=== PATIENT | male | born 1980 | race Caucasian/White ===

== ENCOUNTER 2020-05-09 11:07 | Inpatient (IN) | payer OTHER ==
[2020-05-09] MEDS ORDERED: LORazepam 1 MG Tab PO ONE ×2 (11:26→13:24)
[2020-05-09] MEDS ORDERED: Albuterol/Ipratropium 4 GM Inhalation Spray INH STA (11:26)
--- NOTE | 2020-05-09 11:29 | EDM.PDOC ---
ED HPI GENERAL MEDICAL PROBLEM - General Chief Complaint: Respiratory Problem Stated Complaint: SHORTNESS OF BREATH Time Seen by Provider: 05/09/20 11:18 Source of Information: Reports: Patient, RN Notes Reviewed History Limitations: Reports: No Limitations - History of Present Illness INITIAL COMMENTS - FREE TEXT/NARRATIVE: 40-year-old gentleman presents emergency department a complaint of shortness of breath, he is currently working on the [email or web address] he has a negative Covid test 1 week ago however this morning last night started feeling more short of breath extremely short of breath this morning called EMS services for further evaluation. Denies any fever has no history of asthma is quite anxious Hand Pain Score (Numeric/FACES): 10 - Related Data Allergies Allergy/AdvReac Type Severity Reaction Status Date / Time No Known Allergies Allergy Verified 05/09/20 11:16 Home Meds: Home Meds Mirtazapine 30 mg PO DAILY 05/09/20 [History] lisinopriL [Lisinopril] 10 mg PO DAILY 05/09/20 [History] traZODone 100 mg PO BEDTIME 05/09/20 [History] Past Medical History Cardiovascular History: Reports: High Cholesterol, Hypertension Musculoskeletal History: Reports: Fracture Psychiatric History: Reports: Anxiety, Depression - Infectious Disease History Infectious Disease History: Reports: Chicken Pox - Past Surgical History HEENT Surgical History: Reports: Oral Surgery Musculoskeletal Surgical History: Reports: Other (See Below) Other Musculoskeletal Surgeries/Procedures:: right hand surgery Social & Family History - Tobacco Use Tobacco Use Status *Q: Never Tobacco User ED ROS GENERAL - Review of Systems Review Of Systems: See Below Constitutional: Reports: No Symptoms HEENT: Reports: No Symptoms Respiratory: Reports: Shortness of Breath, Wheezing Cardiovascular: Reports: Dyspnea on Exertion. Denies: Chest Pain GI/Abdominal: Reports: No Symptoms ED EXAM, GENERAL - Physical Exam Exam: See Below Exam Limited By: No Limitations General Appearance: Alert, Mild Distress Respiratory/Chest: Chest Non-Tender, Decreased Breath Sounds, Other (Tachypneic) Cardiovascular: Tachycardia GI/Abdominal: Soft, Non-Tender Course - Vital Signs Last Recorded V/S: Last Vital Signs Temp 98.4 F 05/09/20 14:39 Pulse 98 05/09/20 14:39 Resp 18 05/09/20 14:39 BP 140/85 05/09/20 14:39 Pulse Ox 98 05/09/20 14:39 - Orders/Labs/Meds Orders: Active Orders 24 hr Category Date Time Status EKG Documentation Completion [RC] ASDIRECTED Care 05/09/20 14:56 Active Peripheral IV Care [RC] . DIRECTED Care 05/09/20 14:54 Active RT Post Treatment Assessment [RC] Click to Edit Care 05/09/20 11:26 Active Iopamidol [Isovue-370 (76%)] Med 05/09/20 15:15 Active 100 ml IV . DIRECTED Sodium Chloride 0.9% [Normal Saline] 1,000 ml Med 05/09/20 15:00 Active IV ASDIRECTED Sodium Chloride 0.9% [Normal Saline] 100 ml Med 05/09/20 15:15 Active IV ASDIRECTED Sodium Chloride 0.9% [Saline Flush] Med 05/09/20 14:54 Active 10 ml FLUSH ASDIRECTED PRN Isolation [COMM] Stat Oth 05/09/20 11:25 Ordered Peripheral IV Insertion Adult [OM.PC] Urgent Oth 05/09/20 14:54 Ordered EKG 12 Lead [EK] Stat Ther 05/09/20 14:56 Ordered Medication Orders Sodium Chloride (Normal Saline) 1,000 mls @ 500 mls/hr IV ASDIRECTED [facility] Last Admin: 05/09/20 15:12 Dose: 500 mls/hr Documented by: PREILOR Sodium Chloride (Normal Saline) 100 mls @ 4 mls/sec IV ASDIRECTED [facility] Last Admin: 05/09/20 15:23 Dose: 4 mls/sec Documented by: STACMAG Iopamidol (Isovue-370 (76%)) 100 ml IV . DIRECTED [facility] Last Admin: 05/09/20 15:23 Dose: 100 ml Documented by: CRICKETAG Sodium Chloride (Saline Flush) 10 ml FLUSH ASDIRECTED PRN PRN Reason: Keep Vein Open Last Admin: 05/09/20 15:23 Dose: 10 ml Documented by: Admin: 05/09/20 15:13 Dose: 10 ml Documented by: PREILOR Labs: Laboratory Tests 05/09/20 05/09/20 05/09/20 Range/Units 11:25 11:48 11:48 WBC 5.3 (4.5-11.0) K/uL RBC 4.93 (4.30-5.90) M/uL Hgb 16.4 H (12.0-15.0) g/dL Hct 47.3 (40.0-54.0) % MCV 96 (80-98) fL MCH 33 H (27-31) pg MCHC 35 (32-36) % Plt Count 203 (150-400) K/uL Neut % (Auto) 41 (36-66) % Lymph % (Auto) 50 H (24-44) % Lasalle % (Auto) 8 H (2-6) % Eos % (Auto) 1 L (2-4) % Baso % (Auto) 1 (0-1) % D-Dimer, Quantitative (0.0-500.0) ng/mL Puncture Site ABG pH (7.350-7.450) ABG pCO2 (35.0-42.0) mmHg ABG pO2 (75.0-100.0) mmHg ABG HCO3 (22.0-26.0) mmol/L ABG Total CO2 (23.0-27.0) mmol/L ABG O2 Saturation (95.0-98.0) % ABG O2 Content (15.0-23.0) %vol ABG Base Excess mm/L ABG Hemoglobin (13.5-18.0) g/dL ABG Oxyhemoglobin % ABG Carboxyhemoglobin (0.0-1.6) % ABG Methemoglobin % Bird Test O2 Delivery Device Sodium 143 (140-148) mmol/L Potassium 3.3 L (3.6-5.2) mmol/L Chloride 100 (100-108) mmol/L Carbon Dioxide 23 (21-32) mmol/L Anion Gap 23.3 H (5.0-14.0) mmol/L BUN 10 (7-18) mg/dL Creatinine 0.9 (0.8-1.3) mg/dL Est Cr Clr Drug Dosing 110.20 mL/min Estimated GFR (MDRD) > 60 (>60) Glucose 138 H (74-106) mg/dL Lactic Acid (0.4-2.0) mmol/L Calcium 8.3 L (8.5-10.1) mg/dL Total Bilirubin 0.7 (0.2-1.0) mg/dL Direct Bilirubin 0.22 H (0.0-0.2) mg/dL Indirect Bilirubin 0.48 AST 89 H (15-37) U/L ALT 78 (12-78) U/L Alkaline Phosphatase 69 (46-116) U/L Troponin I (0.000-0.056) ng/mL C-Reactive Protein < 0.05 (0.0-0.3) mg/dL Total Protein 7.7 (6.4-8.2) g/dL Albumin 3.8 (3.4-5.0) g/dL Globulin 3.9 H (2.3-3.5) g/dL Albumin/Globulin Ratio 1.0 L (1.2-2.2) Urine Opiates Screen (NEGATIVE) Ur Oxycodone Screen (NEGATIVE) Urine Methadone Screen (NEGATIVE) Ur Propoxyphene Screen (NEGATIVE) Ur Barbiturates Screen (NEGATIVE) Ur Tricyclics Screen (NEGATIVE) Ur Phencyclidine Scrn (NEGATIVE) Ur Amphetamine Screen (NEGATIVE) U Methamphetamines Scrn (NEGATIVE) Urine MDMA Screen (NEGATIVE) U Benzodiazepines Scrn (NEGATIVE) U Cocaine Metab Screen (NEGATIVE) U Marijuana (THC) Screen (NEGATIVE) Influenza Type A RNA Negative (NEGATIVE) Influenza Type B RNA Negative (NEGATIVE) RSV Rapid Negative (NEGATIVE) SARS-CoV-2 RNA (MAUREEN) Negative (NEGATIVE) 05/09/20 05/09/20 05/09/20 Range/Units 11:48 12:47 12:47 WBC (4.5-11.0) K/uL RBC (4.30-5.90) M/uL Hgb (12.0-15.0) g/dL Hct (40.0-54.0) % MCV (80-98) fL MCH (27-31) pg MCHC (32-36) % Plt Count (150-400) K/uL Neut % (Auto) (36-66) % Lymph % (Auto) (24-44) % Lasalle % (Auto) (2-6) % Eos % (Auto) (2-4) % Baso % (Auto) (0-1) % D-Dimer, Quantitative 495.84 (0.0-500.0) ng/mL Puncture Site ABG pH (7.350-7.450) ABG pCO2 (35.0-42.0) mmHg ABG pO2 (75.0-100.0) mmHg ABG HCO3 (22.0-26.0) mmol/L ABG Total CO2 (23.0-27.0) mmol/L ABG O2 Saturation (95.0-98.0) % ABG O2 Content (15.0-23.0) %vol ABG Base Excess mm/L ABG Hemoglobin (13.5-18.0) g/dL ABG Oxyhemoglobin % ABG Carboxyhemoglobin (0.0-1.6) % ABG Methemoglobin % Bird Test O2 Delivery Device Sodium (140-148) mmol/L Potassium (3.6-5.2) mmol/L Chloride (100-108) mmol/L Carbon Dioxide (21-32) mmol/L Anion Gap (5.0-14.0) mmol/L BUN (7-18) mg/dL Creatinine (0.8-1.3) mg/dL Est Cr Clr Drug Dosing mL/min Estimated GFR (MDRD) (>60) Glucose (74-106) mg/dL Lactic Acid 6.6 H (0.4-2.0) mmol/L Calcium (8.5-10.1) mg/dL Total Bilirubin (0.2-1.0) mg/dL Direct Bilirubin (0.0-0.2) mg/dL Indirect Bilirubin AST (15-37) U/L ALT (12-78) U/L Alkaline Phosphatase (46-116) U/L Troponin I < 0.017 (0.000-0.056) ng/mL C-Reactive Protein (0.0-0.3) mg/dL Total Protein (6.4-8.2) g/dL Albumin (3.4-5.0) g/dL Globulin (2.3-3.5) g/dL Albumin/Globulin Ratio (1.2-2.2) Urine Opiates Screen (NEGATIVE) Ur Oxycodone Screen (NEGATIVE) Urine Methadone Screen (NEGATIVE) Ur Propoxyphene Screen (NEGATIVE) Ur Barbiturates Screen (NEGATIVE) Ur Tricyclics Screen (NEGATIVE) Ur Phencyclidine Scrn (NEGATIVE) Ur Amphetamine Screen (NEGATIVE) U Methamphetamines Scrn (NEGATIVE) Urine MDMA Screen (NEGATIVE) U Benzodiazepines Scrn (NEGATIVE) U Cocaine Metab Screen (NEGATIVE) U Marijuana (THC) Screen (NEGATIVE) Influenza Type A RNA (NEGATIVE) Influenza Type B RNA (NEGATIVE) RSV Rapid (NEGATIVE) SARS-CoV-2 RNA (MAUREEN) (NEGATIVE) 05/09/20 05/09/20 05/09/20 Range/Units 14:54 16:24 16:25 WBC (4.5-11.0) K/uL RBC (4.30-5.90) M/uL Hgb (12.0-15.0) g/dL Hct (40.0-54.0) % MCV (80-98) fL MCH (27-31) pg MCHC (32-36) % Plt Count (150-400) K/uL Neut % (Auto) (36-66) % Lymph % (Auto) (24-44) % Lasalle % (Auto) (2-6) % Eos % (Auto) (2-4) % Baso % (Auto) (0-1) % D-Dimer, Quantitative (0.0-500.0) ng/mL Puncture Site Rt.radial ABG pH 7.581 H (7.350-7.450) ABG pCO2 21.2 L (35.0-42.0) mmHg ABG pO2 90.4 (75.0-100.0) mmHg ABG HCO3 20.0 L (22.0-26.0) mmol/L ABG Total CO2 16.3 L (23.0-27.0) mmol/L ABG O2 Saturation 97.9 (95.0-98.0) % ABG O2 Content 22.5 (15.0-23.0) %vol ABG Base Excess 0.7 mm/L ABG Hemoglobin 16.7 (13.5-18.0) g/dL ABG Oxyhemoglobin 95.6 % ABG Carboxyhemoglobin 1.4 (0.0-1.6) % ABG Methemoglobin 0.9 % Bird Test Passed O2 Delivery Device Room air Sodium (140-148) mmol/L Potassium (3.6-5.2) mmol/L Chloride (100-108) mmol/L Carbon Dioxide (21-32) mmol/L Anion Gap (5.0-14.0) mmol/L BUN (7-18) mg/dL Creatinine (0.8-1.3) mg/dL Est Cr Clr Drug Dosing mL/min Estimated GFR (MDRD) (>60) Glucose (74-106) mg/dL Lactic Acid (0.4-2.0) mmol/L Calcium (8.5-10.1) mg/dL Total Bilirubin (0.2-1.0) mg/dL Direct Bilirubin (0.0-0.2) mg/dL Indirect Bilirubin AST (15-37) U/L ALT (12-78) U/L Alkaline Phosphatase (46-116) U/L Troponin I < 0.017 (0.000-0.056) ng/mL C-Reactive Protein (0.0-0.3) mg/dL Total Protein (6.4-8.2) g/dL Albumin (3.4-5.0) g/dL Globulin (2.3-3.5) g/dL Albumin/Globulin Ratio (1.2-2.2) Urine Opiates Screen Negative (NEGATIVE) Ur Oxycodone Screen Negative (NEGATIVE) Urine Methadone Screen Negative (NEGATIVE) Ur Propoxyphene Screen Negative (NEGATIVE) Ur Barbiturates Screen Negative (NEGATIVE) Ur Tricyclics Screen Presumptive positive H (NEGATIVE) Ur Phencyclidine Scrn Negative (NEGATIVE) Ur Amphetamine Screen Negative (NEGATIVE) U Methamphetamines Scrn Negative (NEGATIVE) Urine MDMA Screen Negative (NEGATIVE) U Benzodiazepines Scrn Presumptive positive H (NEGATIVE) U Cocaine Metab Screen Negative (NEGATIVE) U Marijuana (THC) Screen Negative (NEGATIVE) Influenza Type A RNA (NEGATIVE) Influenza Type B RNA (NEGATIVE) RSV Rapid (NEGATIVE) SARS-CoV-2 RNA (MAUREEN) (NEGATIVE) Meds: Medications Generic Name Dose Route Start Last Admin Trade Name Freq PRN Reason Stop Dose Admin Sodium Chloride 1,000 mls @ 500 mls/hr 05/09/20 15:00 05/09/20 15:12 Normal Saline IV 500 mls/hr ASDIRECTED JUSTINA Administration Sodium Chloride 100 mls @ 4 mls/sec 05/09/20 15:15 05/09/20 15:23 Normal Saline IV 4 mls/sec ASDIRECTED JUSTINA Administration Iopamidol 100 ml 05/09/20 15:15 05/09/20 15:23 Isovue-370 (76%) IV 100 ml . DIRECTED JUSTINA Administration Sodium Chloride 10 ml 05/09/20 14:54 05/09/20 15:23 Saline Flush FLUSH 10 ml ASDIRECTED PRN Administration Keep Vein Open Discontinued Medications Generic Name Dose Route Start Last Admin Trade Name Wanda PRN Reason Stop Dose Admin Albuterol/Ipratropium 1 gm 05/09/20 11:26 05/09/20 11:40 Combivent Respimat INH 05/09/20 11:27 2 puff NOW STA Administration Diphenhydramine HCl 25 mg 05/09/20 13:24 05/09/20 13:35 Benadryl PO 05/09/20 13:25 25 mg ONETIME ONE Administration Lorazepam 1 mg 05/09/20 11:26 05/09/20 11:39 Ativan PO 05/09/20 11:27 1 mg ONETIME ONE Administration Lorazepam 1 mg 05/09/20 13:24 05/09/20 13:35 Ativan PO 05/09/20 13:25 1 mg ONETIME ONE Administration Methylprednisolone Sodium Succinate 40 mg 05/09/20 17:17 Solu-Medrol IVPUSH 05/09/20 17:18 ONETIME ONE - Re-Assessments/Exams Free Text/Narrative Re-Assessment/Exam: 05/09/20 14:55 He had some improvement in his symptomology with Ativan and a Combivent inhaler however when I did ambulate with him around the emergency department he became visibly short of breath with exertion 05/09/20 16:44 Did peak flow measurements for his height and age he should be able to do around 500 mL/min initially he did about 350 after Combivent inhaler 2 puffs he was able to do 450 Departure - Departure Time of Disposition: 17:21 Disposition: Home, Self-Care 01 Condition: Fair Clinical Impression: Dyspnea Qualifiers: Dyspnea type: shortness of breath Qualified Code(s): R06.02 - Shortness of breath; R06.00 - Dyspnea, unspecified; R06.01 - Orthopnea - Discharge Information Instructions: Shortness of Breath, Adult, [id number] Referrals: PCP,None [Primary Care Provider] - Forms: ED Department Discharge Additional Instructions: Outpatient respiratory therapy will call you for an appointment time for the pulmonary function test Officer will be working I will discuss those results with you if you get worse please report back to the emergency department Sepsis Event Note (ED) - Evaluation Sepsis Screening Result: No Definite Risk - Focused Exam Vital Signs: Vital Signs Temp Pulse Resp BP Pulse Ox 05/09/20 14:39 98.4 F 98 18 140/85 98 05/09/20 12:51 97 24 H 121/69 95 05/09/20 11:50 103 H 145/87 H 98 05/09/20 11:49 102 H 22 H 145/87 H 97 05/09/20 11:10 98.3 F 124 H 42 H 164/112 H 99 - My Orders Last 24 Hours: My Active Orders 05/09/20 11:25 Isolation [COMM] Stat 05/09/20 11:26 RT Post Treatment Assessment [RC] Click to Edit 05/09/20 14:54 Peripheral IV Care [RC] . DIRECTED Sodium Chloride 0.9% [Saline Flush] 10 ml FLUSH ASDIRECTED PRN Peripheral IV Insertion Adult [OM.PC] Urgent 05/09/20 14:56 EKG Documentation Completion [RC] ASDIRECTED EKG 12 Lead [EK] Stat 05/09/20 15:00 Sodium Chloride 0.9% [Normal Saline] 1,000 ml IV ASDIRECTED 05/09/20 15:15 Iopamidol [Isovue-370 (76%)] 100 ml IV . DIRECTED Sodium Chloride 0.9% [Normal Saline] 100 ml IV ASDIRECTED - Assessment/Plan Last 24 Hours: My Active Orders 05/09/20 11:25 Isolation [COMM] Stat 05/09/20 11:26 RT Post Treatment Assessment [RC] Click to Edit 05/09/20 14:54 Peripheral IV Care [RC] . DIRECTED Sodium Chloride 0.9% [Saline Flush] 10 ml FLUSH ASDIRECTED PRN Peripheral IV Insertion Adult [OM.PC] Urgent 05/09/20 14:56 EKG Documentation Completion [RC] ASDIRECTED EKG 12 Lead [EK] Stat 05/09/20 15:00 Sodium Chloride 0.9% [Normal Saline] 1,000 ml IV ASDIRECTED 05/09/20 15:15 Iopamidol [Isovue-370 (76%)] 100 ml IV . DIRECTED Sodium Chloride 0.9% [Normal Saline] 100 ml IV ASDIRECTED Plan: Assessment Acuity = acute Site and laterality = dyspnea Etiology = unknown Manifestations = none Location of injury = Home Lab values = CBC unremarkable, potassium low at 3.3 consistent hypokalemia lactic acid elevated 6.6 consistent with lactic acidosis ABG reveals a pH of 7.58 PCO2 21.2 and a bicarb of 20 D-dimer was negative CT with contrast also no acute process EKG demonstrates sinus rhythm, abnormality in peak flow described above Plan I did offer him admission which she declined he would like to try outpatient treatment first were going to do Solu-Medrol 40 mg IV x1 also wrote for an albuterol inhaler which he can use at home every couple hours as needed for shortness of breath he is going to follow-up tomorrow I have written for an outpatient test for pulmonary function test because I am working in the next couple days I will discuss that with him if he gets worse he will return to the emergency department This note was dictated using [employer] voice recognition software please call with any questions on syntax or grammar.
--- NOTE | 2020-05-09 11:59 | CR ---
CHEST: Portable 05/09/2020 11:52 AM CLINICAL HISTORY:SOB COMPARISON:None FINDINGS: The heart size, pulmonary vascularity and hilar structures are normal. No infiltrate effusion or pneumothorax is seen. IMPRESSION: No acute cardiopulmonary process.
[2020-05-09 12:28] LABS: CORONAVIRUS COVID-19 NAA NEGATIVE (NEGATIVE)
[2020-05-09] MEDS ORDERED: diphenhydrAMINE 25 MG Cap PO ONE (13:24)
[2020-05-09] MEDS ORDERED: Sodium Chloride 0.9% 1,000 ML IV SCH (15:00)
[2020-05-09] MEDS: Sodium Chloride 0.9% 10 ML Syringe FLUSH PRN ×2 (15:13→15:23)
[2020-05-09] MEDS ORDERED: Iopamidol 755 Mg/ML 100 ML Bottle IV SCH (15:15)
[2020-05-09] MEDS ORDERED: Sodium Chloride 0.9% 100 ML IV SCH (15:15)
--- NOTE | 2020-05-09 15:50 | CT ---
Ang Chest CLINICAL HISTORY: SOB TECHNIQUE: Thin section axial contiguous tomographic sections were taken through the chest after bolus IV iodinated contrast administration. Coronal and sagittal images were reconstructed. Auto dosage reduction and iterative reconstruction techniques employed. FINDINGS: No filling defects are seen in the pulmonary arteries. Aorta is free of aneurysm or dissection. There is a 3 x 8 mm nodule in the right upper lobe on image #67. There is a 6 mm pleural-based noncalcified nodule in the left the lower lobe on image #98. There is some bullous changes in the right lung base. No mediastinal mass or lymphadenopathy is identified. There is a small hiatal hernia. There are no pleural effusions. IMPRESSION: No evidence of pulmonary embolus Small bilateral pulmonary nodules described. Follow-up using Fleischner Society criteria recommended FLEISCHNER CRITERIA (2017) Incidental Pulmonary Nodule Follow-up SOLID NODULES: Nodule size <6 mm -single and multiple nodules in low risk patient: no routine follow-up -single and multiple nodules in high risk patient: optional CT at 12 months Nodule size 6-8 mm -single nodule in low risk patient: CT at 6-12 months, then consider CT at 18-24 months -multiple nodules in low risk patient: CT at 3-6 months, then consider CT at 18-24 months -single nodule in high risk patient: CT at 6-12 months, then CT at 18-24 months -multiple nodules in high risk patient: CT at 3-6 months, then CT at 18-24 months Nodule size >8 mm -single nodule in both low and high risk patient: consider CT, PET/CT, or tissue sampling at 3 months -multiple nodules in low risk patient: CT at 3-6 months, then consider CT at 18-24 months -multiple nodules in high risk patient: CT at 3-6 months, then CT at 18-24 months Implications for Patient Care 1. These guidelines apply to incidental nodules, which can be managed according to the specific recommendations. 2. These guidelines do not apply to patients younger than 35 years, immunocompromised patients, or patients with cancer. 3. For lung cancer screening, adherence to the existing [employer] Lung CT Screening Reporting and Data System (Lung-RADS) guidelines is recommended.
[2020-05-09] MEDS ORDERED: methylPREDNISolone Sodium Succinate 40 MG/1 ML SDV IVPUSH ONE (17:17)
[2020-05-09] MEDS ORDERED: Pantoprazole 40 MG Vial IVPUSH SCH (18:00)
--- NOTE | 2020-05-09 18:12 | PCM.HP.2 ---
H&P History of Present Illness - General Date of Service: 05/09/20 Admit Problem/Dx: Admission Diagnosis/Problem Admission Diagnosis/Problem Bleeding Source of Information: Patient, Provider, RN Notes Reviewed History Limitations: Reports: No Limitations - History of Present Illness Initial Comments - Free Text/Narative: Mr. Hays is a 40-year-old gentleman who was admitted through the emergency department with shortness of breath secondary to asthma exacerbation as well as hematemesis secondary to an upper GI bleed. He was feeling well until yesterday when he noted onset of shortness of breath with exertion. Symptoms progressed through the night and he was unable to sleep very well. He presented to the emergency department this morning for further evaluation. Chest x-ray as well as CT scan of the chest with PE protocol are all negative. White blood cell cou nt is within normal range. Arterial blood gases show evidence of hyperventilation and respiratory alkalosis. He has had some associated cough that has been nonproductive. Peak flow was obtained and was found to be low and improved with inhaler therapy. While in the emergency department he has had 2 separate episodes of hematemesis. Follow-up hemoglobin level was obtained and had not changed substantially. He has 1 previous episode of upper GI bleed related to nonsteroidal use. 2 troponin levels have been obtained and were found to be normal. Hand Pain Score (Numeric/FACES): 10 - Related Data Allergies/Adverse Reactions: Allergies Allergy/AdvReac Type Severity Reaction Status Date / Time No Known Allergies Allergy Verified 05/09/20 11:16 Home Medications: Home Meds Mirtazapine 30 mg PO DAILY 05/09/20 [History] lisinopriL [Lisinopril] 10 mg PO DAILY 05/09/20 [History] traZODone 100 mg PO BEDTIME 05/09/20 [History] Past Medical History Cardiovascular History: Reports: High Cholesterol, Hypertension Respiratory History: Reports: None Gastrointestinal History: Reports: None Genitourinary History: Reports: None Musculoskeletal History: Reports: Fracture Neurological History: Reports: None Psychiatric History: Reports: Anxiety, Depression Endocrine/Metabolic History: Reports: None Hematologic History: Reports: None Immunologic History: Reports: None Oncologic (Cancer) History: Reports: None Dermatologic History: Reports: None - Infectious Disease History Infectious Disease History: Reports: Chicken Pox - Past Surgical History HEENT Surgical History: Reports: Oral Surgery Musculoskeletal Surgical History: Reports: Other (See Below) Other Musculoskeletal Surgeries/Procedures:: right hand surgery Social & Family History - Tobacco Use Tobacco Use Status *Q: Never Tobacco User Years of Tobacco use: 25 Packs/Tins Daily: 0.5 - Caffeine Use Caffeine Use: Reports: Soda - Recreational Drug Use Recreational Drug Use: No H&P Review of Systems - Review of Systems: Review Of Systems: See Below General: Reports: No Symptoms HEENT: Reports: No Symptoms Pulmonary: Reports: Shortness of Breath, Cough. Denies: Wheezing, Pleuritic Chest Pain, Sputum, Hemoptysis Cardiovascular: Reports: Dyspnea on Exertion. Denies: Chest Pain, Palpitations, Orthopnea, PND, Edema, Lightheadedness Gastrointestinal: Reports: Hematemesis, Nausea, Vomiting. Denies: Abdominal Pain, Diarrhea, Difficulty Swallowing, Distension, Hematochezia, Melena Genitourinary: Reports: No Symptoms Musculoskeletal: Reports: No Symptoms Skin: Reports: No Symptoms Psychiatric: Reports: No Symptoms Neurological: Reports: No Symptoms Hematologic/Lymphatic: Reports: No Symptoms Immunologic: Reports: No Symptoms Exam - Exam Exam: See Below - Vital Signs Vital Signs: Last Vital Signs Temp 98.4 F 05/09/20 14:39 Pulse 102 H 05/09/20 17:34 Resp 18 05/09/20 17:34 BP 153/95 H 05/09/20 17:34 Pulse Ox 96 05/09/20 17:34 Weight: 265 lb - Exam Quality Assessment: DVT Prophylaxis General: Alert, Oriented, Cooperative, Mild Distress HEENT: Conjunctiva Clear, Hearing Intact, Mucosa Moist & [place], Normal Nasal Septum, Posterior Pharynx Clear, Pupils Equal Neck: Supple, Trachea Midline, +2 Carotid Pulse wo Bruit Lungs: Clear to Auscultation, Normal Respiratory Effort Cardiovascular: Regular Rate, Regular Rhythm, Normal S1, Normal S2. No: Systolic Murmur, Diastolic Murmur GI/Abdominal Exam: Soft, Non-Tender, No Organomegaly, No Distention Back Exam: Normal Inspection, Full Range of Motion Extremities: Non-Tender, No Pedal Edema Skin: Warm, Dry, Intact Neurological: Cranial Nerves Intact, Strength Equal Bilateral, Normal Speech, Normal Tone, Sensation Intact. No: Focal Deficit Neuro Extensive - Mental Status: Alert, Oriented x3, Normal Mood/Affect, Normal Cognition, Memory Intact - Patient Data Lab Results Last 24 hrs: Laboratory Results - last 24 hr 05/09/20 05/09/20 05/09/20 Range/Units 11:25 11:48 11:48 WBC 5.3 (4.5-11.0) K/uL RBC 4.93 (4.30-5.90) M/uL Hgb 16.4 H (12.0-15.0) g/dL Hct 47.3 (40.0-54.0) % MCV 96 (80-98) fL MCH 33 H (27-31) pg MCHC 35 (32-36) % Plt Count 203 (150-400) K/uL Neut % (Auto) 41 (36-66) % Lymph % (Auto) 50 H (24-44) % [place] % (Auto) 8 H (2-6) % Eos % (Auto) 1 L (2-4) % Baso % (Auto) 1 (0-1) % D-Dimer, Quantitative (0.0-500.0) ng/mL Puncture Site ABG pH (7.350-7.450) ABG pCO2 (35.0-42.0) mmHg ABG pO2 (75.0-100.0) mmHg ABG HCO3 (22.0-26.0) mmol/L ABG Total CO2 (23.0-27.0) mmol/L ABG O2 Saturation (95.0-98.0) % ABG O2 Content (15.0-23.0) %vol ABG Base Excess mm/L ABG Hemoglobin (13.5-18.0) g/dL ABG Oxyhemoglobin % ABG Carboxyhemoglobin (0.0-1.6) % ABG Methemoglobin % Bird Test O2 Delivery Device Sodium 143 (140-148) mmol/L Potassium 3.3 L (3.6-5.2) mmol/L Chloride 100 (100-108) mmol/L Carbon Dioxide 23 (21-32) mmol/L Anion Gap 23.3 H (5.0-14.0) mmol/L BUN 10 (7-18) mg/dL Creatinine 0.9 (0.8-1.3) mg/dL Est Cr Clr Drug Dosing 110.20 mL/min Estimated GFR (MDRD) > 60 (>60) Glucose 138 H (74-106) mg/dL Lactic Acid (0.4-2.0) mmol/L Calcium 8.3 L (8.5-10.1) mg/dL Total Bilirubin 0.7 (0.2-1.0) mg/dL Direct Bilirubin 0.22 H (0.0-0.2) mg/dL Indirect Bilirubin 0.48 AST 89 H (15-37) U/L ALT 78 (12-78) U/L Alkaline Phosphatase 69 (46-116) U/L Troponin I (0.000-0.056) ng/mL C-Reactive Protein < 0.05 (0.0-0.3) mg/dL Total Protein 7.7 (6.4-8.2) g/dL Albumin 3.8 (3.4-5.0) g/dL Globulin 3.9 H (2.3-3.5) g/dL Albumin/Globulin Ratio 1.0 L (1.2-2.2) Urine Opiates Screen (NEGATIVE) Ur Oxycodone Screen (NEGATIVE) Urine Methadone Screen (NEGATIVE) Ur Propoxyphene Screen (NEGATIVE) Ur Barbiturates Screen (NEGATIVE) Ur Tricyclics Screen (NEGATIVE) Ur Phencyclidine Scrn (NEGATIVE) Ur Amphetamine Screen (NEGATIVE) U Methamphetamines Scrn (NEGATIVE) Urine MDMA Screen (NEGATIVE) U Benzodiazepines Scrn (NEGATIVE) U Cocaine Metab Screen (NEGATIVE) U Marijuana (THC) Screen (NEGATIVE) Influenza Type A RNA Negative (NEGATIVE) Influenza Type B RNA Negative (NEGATIVE) RSV Rapid Negative (NEGATIVE) SARS-CoV-2 RNA (MAUREEN) Negative (NEGATIVE) 05/09/20 05/09/20 05/09/20 Range/Units 11:48 12:47 12:47 WBC (4.5-11.0) K/uL RBC (4.30-5.90) M/uL Hgb (12.0-15.0) g/dL Hct (40.0-54.0) % MCV (80-98) fL MCH (27-31) pg MCHC (32-36) % Plt Count (150-400) K/uL Neut % (Auto) (36-66) % Lymph % (Auto) (24-44) % [place] % (Auto) (2-6) % Eos % (Auto) (2-4) % Baso % (Auto) (0-1) % D-Dimer, Quantitative 495.84 (0.0-500.0) ng/mL Puncture Site ABG pH (7.350-7.450) ABG pCO2 (35.0-42.0) mmHg ABG pO2 (75.0-100.0) mmHg ABG HCO3 (22.0-26.0) mmol/L ABG Total CO2 (23.0-27.0) mmol/L ABG O2 Saturation (95.0-98.0) % ABG O2 Content (15.0-23.0) %vol ABG Base Excess mm/L ABG Hemoglobin (13.5-18.0) g/dL ABG Oxyhemoglobin % ABG Carboxyhemoglobin (0.0-1.6) % ABG Methemoglobin % Bird Test O2 Delivery Device Sodium (140-148) mmol/L Potassium (3.6-5.2) mmol/L Chloride (100-108) mmol/L Carbon Dioxide (21-32) mmol/L Anion Gap (5.0-14.0) mmol/L BUN (7-18) mg/dL Creatinine (0.8-1.3) mg/dL Est Cr Clr Drug Dosing mL/min Estimated GFR (MDRD) (>60) Glucose (74-106) mg/dL Lactic Acid 6.6 H (0.4-2.0) mmol/L Calcium (8.5-10.1) mg/dL Total Bilirubin (0.2-1.0) mg/dL Direct Bilirubin (0.0-0.2) mg/dL Indirect Bilirubin AST (15-37) U/L ALT (12-78) U/L Alkaline Phosphatase (46-116) U/L Troponin I < 0.017 (0.000-0.056) ng/mL C-Reactive Protein (0.0-0.3) mg/dL Total Protein (6.4-8.2) g/dL Albumin (3.4-5.0) g/dL Globulin (2.3-3.5) g/dL Albumin/Globulin Ratio (1.2-2.2) Urine Opiates Screen (NEGATIVE) Ur Oxycodone Screen (NEGATIVE) Urine Methadone Screen (NEGATIVE) Ur Propoxyphene Screen (NEGATIVE) Ur Barbiturates Screen (NEGATIVE) Ur Tricyclics Screen (NEGATIVE) Ur Phencyclidine Scrn (NEGATIVE) Ur Amphetamine Screen (NEGATIVE) U Methamphetamines Scrn (NEGATIVE) Urine MDMA Screen (NEGATIVE) U Benzodiazepines Scrn (NEGATIVE) U Cocaine Metab Screen (NEGATIVE) U Marijuana (THC) Screen (NEGATIVE) Influenza Type A RNA (NEGATIVE) Influenza Type B RNA (NEGATIVE) RSV Rapid (NEGATIVE) SARS-CoV-2 RNA (MAUREEN) (NEGATIVE) 05/09/20 05/09/20 05/09/20 Range/Units 14:54 16:24 16:25 WBC (4.5-11.0) K/uL RBC (4.30-5.90) M/uL Hgb (12.0-15.0) g/dL Hct (40.0-54.0) % MCV (80-98) fL MCH (27-31) pg MCHC (32-36) % Plt Count (150-400) K/uL Neut % (Auto) (36-66) % Lymph % (Auto) (24-44) % [place] % (Auto) (2-6) % Eos % (Auto) (2-4) % Baso % (Auto) (0-1) % D-Dimer, Quantitative (0.0-500.0) ng/mL Puncture Site Rt.radial ABG pH 7.581 H (7.350-7.450) ABG pCO2 21.2 L (35.0-42.0) mmHg ABG pO2 90.4 (75.0-100.0) mmHg ABG HCO3 20.0 L (22.0-26.0) mmol/L ABG Total CO2 16.3 L (23.0-27.0) mmol/L ABG O2 Saturation 97.9 (95.0-98.0) % ABG O2 Content 22.5 (15.0-23.0) %vol ABG Base Excess 0.7 mm/L ABG Hemoglobin 16.7 (13.5-18.0) g/dL ABG Oxyhemoglobin 95.6 % ABG Carboxyhemoglobin 1.4 (0.0-1.6) % ABG Methemoglobin 0.9 % Bird Test Passed O2 Delivery Device Room air Sodium (140-148) mmol/L Potassium (3.6-5.2) mmol/L Chloride (100-108) mmol/L Carbon Dioxide (21-32) mmol/L Anion Gap (5.0-14.0) mmol/L BUN (7-18) mg/dL Creatinine (0.8-1.3) mg/dL Est Cr Clr Drug Dosing mL/min Estimated GFR (MDRD) (>60) Glucose (74-106) mg/dL Lactic Acid (0.4-2.0) mmol/L Calcium (8.5-10.1) mg/dL Total Bilirubin (0.2-1.0) mg/dL Direct Bilirubin (0.0-0.2) mg/dL Indirect Bilirubin AST (15-37) U/L ALT (12-78) U/L Alkaline Phosphatase (46-116) U/L Troponin I < 0.017 (0.000-0.056) ng/mL C-Reactive Protein (0.0-0.3) mg/dL Total Protein (6.4-8.2) g/dL Albumin (3.4-5.0) g/dL Globulin (2.3-3.5) g/dL Albumin/Globulin Ratio (1.2-2.2) Urine Opiates Screen Negative (NEGATIVE) Ur Oxycodone Screen Negative (NEGATIVE) Urine Methadone Screen Negative (NEGATIVE) Ur Propoxyphene Screen Negative (NEGATIVE) Ur Barbiturates Screen Negative (NEGATIVE) Ur Tricyclics Screen Presumptive positive H (NEGATIVE) Ur Phencyclidine Scrn Negative (NEGATIVE) Ur Amphetamine Screen Negative (NEGATIVE) U Methamphetamines Scrn Negative (NEGATIVE) Urine MDMA Screen Negative (NEGATIVE) U Benzodiazepines Scrn Presumptive positive H (NEGATIVE) U Cocaine Metab Screen Negative (NEGATIVE) U Marijuana (THC) Screen Negative (NEGATIVE) Influenza Type A RNA (NEGATIVE) Influenza Type B RNA (NEGATIVE) RSV Rapid (NEGATIVE) SARS-CoV-2 RNA (MAUREEN) (NEGATIVE) Result Diagrams: 05/09/20 18:00 05/09/20 11:48 Sepsis Event Note - Evaluation Sepsis Screening Result: No Definite Risk - Focused Exam Vital Signs: Vital Signs Temp Pulse Resp BP Pulse Ox 05/09/20 17:34 102 H 18 153/95 H 96 05/09/20 14:39 98.4 F 98 18 140/85 98 05/09/20 12:51 97 24 H 121/69 95 05/09/20 11:50 103 H 145/87 H 98 05/09/20 11:49 102 H 22 H 145/87 H 97 05/09/20 11:10 98.3 F 124 H 42 H 164/112 H 99 *Q Meaningful Use (ADM) - VTE Risk Assess *Q Each Risk Factor Represents 1 Point: Obesity ( BMI > 25 kg/m2) Total Score 1 Point Risk Factors: 1 Each Risk Factor Represents 2 Points: None Total Score 2 Point Risk Factors: 0 Each Risk Factor Represents 3 Points: None Total Score 3 Point Risk Factors: 0 Each Risk Factor Represents 5 Points: None Total Score 5 Point Risk Factors: 0 Venous Thromboembolism Risk Factor Score *Q: 1 Problem List Initiated/Reviewed/Updated: Yes Orders Last 24hrs: Active Orders 24 hr Category Date Time Status Patient Status Manage Transfer [TRANSFER] Routine ADT 05/09/20 18:01 Active EKG Documentation Completion [RC] ASDIRECTED Care 05/09/20 14:56 Active Gastric Occult/pH Collection D [RC] ASDIRECTED Care 05/09/20 18:01 Active Peripheral IV Care [RC] . DIRECTED Care 05/09/20 14:54 Active RT Post Treatment Assessment [RC] Click to Edit Care 05/09/20 11:26 Active ETOH [ETHANOL BLOOD MEDICAL] [CHEM] Stat Lab 05/09/20 18:08 Ordered HGB [HEMOGLOBIN] [HEME] Stat Lab 05/09/20 18:00 Ordered TYPE AND SCREEN [BBK] Stat Lab 05/09/20 18:00 Ordered Iopamidol [Isovue-370 (76%)] Med 05/09/20 15:15 Active 100 ml IV . DIRECTED Pantoprazole [ProTONIX IV] Med 05/09/20 18:00 Ordered 80 mg IVPUSH .BOLUS Pantoprazole [ProTONIX IV] 80 mg Med 05/09/20 18:00 Ordered Sodium Chloride 0.9% [Normal Saline] 100 ml IV Q10H Sodium Chloride 0.9% [Normal Saline] 1,000 ml Med 05/09/20 15:00 Active IV ASDIRECTED Sodium Chloride 0.9% [Normal Saline] 100 ml Med 05/09/20 15:15 Active IV ASDIRECTED Sodium Chloride 0.9% [Saline Flush] Med 05/09/20 14:54 Active 10 ml FLUSH ASDIRECTED PRN Isolation [COMM] Stat Oth 05/09/20 11:25 Ordered Peripheral IV Insertion Adult [OM.PC] Urgent Oth 05/09/20 14:54 Ordered Resuscitation Status Routine Resus Stat 05/09/20 18:02 Ordered EKG 12 Lead [EK] Stat Ther 05/09/20 14:56 Ordered Medication Orders Sodium Chloride (Normal Saline) 1,000 mls @ 500 mls/hr IV ASDIRECTED JUSTINA Last Admin: 05/09/20 15:12 Dose: 500 mls/hr Documented by: PREILOR Sodium Chloride (Normal Saline) 100 mls @ 4 mls/sec IV ASDIRECTED JUSTINA Last Admin: 05/09/20 15:23 Dose: 4 mls/sec Documented by: LINCOLN Pantoprazole Sodium 80 mg/ (Sodium Chloride) 100 mls @ 10 mls/hr IV Q10H JUSTINA Iopamidol (Isovue-370 (76%)) 100 ml IV . DIRECTED [facility] Last Admin: 05/09/20 15:23 Dose: 100 ml Documented by: LINCOLN Pantoprazole Sodium (Protonix Iv) 80 mg IVPUSH .BOLUS JUSTINA Sodium Chloride (Saline Flush) 10 ml FLUSH ASDIRECTED PRN PRN Reason: Keep Vein Open Last Admin: 05/09/20 15:23 Dose: 10 ml Documented by: Admin: 05/09/20 15:13 Dose: 10 ml Documented by: PREILOR Assessment/Plan Comment:: ASSESSMENT AND PLAN ASTHMA EXACERBATION-fairly abrupt onset of shortness of breath, no prior history of asthma. Peak flows in the emergency department decreased and did improve with bronchodilator therapy. Other evaluation so far is negative including 2 normal troponin levels and CT angiogram of the chest. -Nebulized albuterol as needed -Continuous pulse oximetry -Solu-Medrol 40 mg IV every 6 hours -Consider further cardiac work-up including stress test and echocardiogram. UPPER GI BLEED-2 episodes of hematemesis noted in the emergency department. First follow-up hemoglobin level is stable. -Serial hemoglobin levels -Protonix 80 mg IV bolus -Continuous infusion of Protonix -Type and screen -Consult Dr. Mcmillan for EGD in a.m. MAINTENANCE ISSUES -DVT prophylaxis; SCUDs -GI prophylaxis; Protonix as above -Louis catheter; not indicated -Nutrition; n.p.o. -Nicotine dependence; not required CODE STATUS-FULL CODE ADMISSION STATUS-patient will be admitted to inpatient status, expect at least a 2 night hospital stay for evaluation and management of problems as outlined above. At the time of this admission I do not reasonably expected evaluation and management of this problem will require more than a 96 hour hospital stay. DISPOSITION-anticipate discharge to home after the hospital stay. PRIMARY CARE PROVIDER-patient is from [place] and receives his primary care at [facility] - Mortality Measure Prognosis:: Good
[2020-05-09] MEDS ORDERED: Polyethylene Glycol 3350 Powder 17 GM Packet PO PRN (19:28)
[2020-05-09] MEDS ORDERED: Sodium Chloride 0.9% 10 ML Syringe FLUSH PRN (19:28)
[2020-05-09] MEDS ORDERED: Ondansetron 4 MG/2 ML SDV IV PRN (19:28)
[2020-05-09] MEDS: Sodium Chloride 0.9% 1,000 ML IV SCH (19:37)
[2020-05-09] MEDS ORDERED: FLU VACC QS2020-21(6MOS UP)/PF 60 MCG/0.5 ML SYRINGE IM ONE (20:00)
[2020-05-09] MEDS: traZODone 50 MG Tab PO SCH (20:28)
[2020-05-09] MEDS: Pantoprazole 80 MG in Sodium Chloride 0.9% 100 ML IV SCH (20:53)
[2020-05-09] MEDS: Albuterol 0.083% 2.5 MG/3 ML Neb Soln NEB PRN (21:26)
[2020-05-09] MEDS: methylPREDNISolone Sodium Succinate 40 MG/1 ML SDV IVPUSH SCH (23:56)
[2020-05-10] MEDS: Sodium Chloride 0.9% 1,000 ML IV SCH ×2 (03:30→12:34)
[2020-05-10] MEDS: methylPREDNISolone Sodium Succinate 40 MG/1 ML SDV IVPUSH SCH ×4 (05:10→23:58)
[2020-05-10] MEDS: Pantoprazole 80 MG in Sodium Chloride 0.9% 100 ML IV SCH (06:41)
[2020-05-10] MEDS ORDERED: Midazolam 1 MG/ML 2 ML SDV ONE (07:27)
[2020-05-10] MEDS ORDERED: fentaNYL 100 MCG/2 ML SDV ONE (07:27)
[2020-05-10] MEDS: Albuterol 0.083% 2.5 MG/3 ML Neb Soln NEB PRN (07:56)
[2020-05-10] MEDS ORDERED: Propofol 200 MG/20 ML SDV ONE ×3 (08:24→08:27)
[2020-05-10] MEDS ORDERED: Lactated Ringers 1,000 ML ONE (08:27)
[2020-05-10] MEDS ORDERED: Octreotide 100 MCG/ML SDV IVPUSH ONE (09:00)
[2020-05-10] MEDS ORDERED: Mirtazapine 15 MG Tab PO SCH (09:00)
[2020-05-10] MEDS: Octreotide 500 MCG in Sodium Chloride 0.9% 497.5 ML IV SCH ×2 (09:13→19:20)
[2020-05-10] MEDS: Potassium Chloride 20 MEQ, Lidocaine 1% 2 ML in Sodium Chloride 0.9% 100 ML IV SCH ×2 (09:34→12:15)
[2020-05-10] MEDS: Magnesium Sulfate/Water 2 GM in Premix Bag 1 BAG IV SCH ×3 (09:36→20:21)
[2020-05-10] MEDS: Acetaminophen 325 MG Tab PO PRN ×2 (09:40→16:51)
[2020-05-10] MEDS: Pantoprazole 40 MG Tab.CR PO SCH (09:41)
[2020-05-10] MEDS: Magnesium Oxide 400 MG Tab PO SCH ×2 (09:41→20:21)
--- NOTE | 2020-05-10 11:31 | OR ---
DATE OF PROCEDURE: 05/10/2020 SURGEON: Michele Mcmillan MD PROCEDURE: Esophagogastroduodenoscopy with esophageal banding and clipping. COMPLICATION: None. SCREW MACHINE TENDER: None. PREOPERATIVE DIAGNOSIS: Active gastrointestinal bleed. POSTOPERATIVE DIAGNOSIS: Active gastrointestinal bleed. FINDINGS: Active GI bleeding at esophageal junction. COMPLICATIONS: None. SCREW MACHINE TENDER: None. RISKS: Risks, benefits, alternatives, and limitations including, but not limited to, infection, bleeding, false positive, false negative, rebleeding, complications, sepsis issues, and other risks not listed here were explained to the patient and wished to proceed. PROCEDURE IN DETAIL: The patient was placed in left lateral decubitus position. EGD scope was introduced and advanced atraumatically into the duodenum. No evidence of duodenitis or ulcerations. There was blood noted in the stomach. This was noted to be bleeding from the gastroesophageal junction. 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 This was initially clipped, however, due to its size, it was felt that the clip would not be adequate and the rebleed rate would be higher. As no other additional clips or size clips were available, banding was then selected. This area was then banded over the clips. This was then observed and the bleeding had completely stopped. The remaining esophagus was inspected without abnormality. The patient tolerated the procedure well. Michele Mcmillan MD /[id number]
--- NOTE | 2020-05-10 15:56 | PCM.PN ---
- General Info Date of Service: 05/10/20 Subjective Update: Mr. Hays is remained stable since admission yesterday. EGD was performed this morning by Dr. Mcmillan and did show bleeding from an esophageal varices. The varices was clipped and also banded. Saúl has remained hemodynamically stable denies significant abdominal discomfort. Functional Status: Reports: Tolerating Diet, Ambulating, Urinating - Review of Systems General: Reports: No Symptoms Pulmonary: Reports: No Symptoms Cardiovascular: Reports: No Symptoms Gastrointestinal: Denies: Abdominal Pain, Difficulty Swallowing, Melena, Nausea, Vomiting Genitourinary: Reports: No Symptoms - Patient Data Vitals - Most Recent: Last Vital Signs Temp 98.6 F 05/10/20 12:00 Pulse 73 05/10/20 14:00 Resp 16 05/10/20 14:00 BP 167/97 H 05/10/20 14:00 Pulse Ox 92 L 05/10/20 14:00 Weight - Most Recent: 274 lb 6.409 oz I&O - Last 24 Hours: Intake & Output 05/10/20 05/10/20 05/10/20 06:59 14:59 22:59 Intake Total 1429 Balance 1429 Lab Results Last 24 Hours: Laboratory Results - last 24 hr 05/09/20 05/09/20 05/09/20 Range/Units 16:24 16:25 18:00 WBC (4.5-11.0) K/uL RBC (4.30-5.90) M/uL Hgb 15.9 H (12.0-15.0) g/dL Hct (40.0-54.0) % MCV (80-98) fL MCH (27-31) pg MCHC (32-36) % Plt Count (150-400) K/uL Neut % (Auto) (36-66) % Lymph % (Auto) (24-44) % [place] % (Auto) (2-6) % Eos % (Auto) (2-4) % Baso % (Auto) (0-1) % Sodium (140-148) mmol/L Potassium (3.6-5.2) mmol/L Chloride (100-108) mmol/L Carbon Dioxide (21-32) mmol/L Anion Gap (5.0-14.0) mmol/L BUN (7-18) mg/dL Creatinine (0.8-1.3) mg/dL Est Cr Clr Drug Dosing mL/min Estimated GFR (MDRD) (>60) Glucose (74-106) mg/dL Calcium (8.5-10.1) mg/dL Magnesium (1.8-2.4) mg/dL Troponin I < 0.017 (0.000-0.056) ng/mL Urine Opiates Screen Negative (NEGATIVE) Ur Oxycodone Screen Negative (NEGATIVE) Urine Methadone Screen Negative (NEGATIVE) Ur Propoxyphene Screen Negative (NEGATIVE) Ur Barbiturates Screen Negative (NEGATIVE) Ur Tricyclics Screen Presumptive positive H (NEGATIVE) Ur Phencyclidine Scrn Negative (NEGATIVE) Ur Amphetamine Screen Negative (NEGATIVE) U Methamphetamines Scrn Negative (NEGATIVE) Urine MDMA Screen Negative (NEGATIVE) U Benzodiazepines Scrn Presumptive positive H (NEGATIVE) U Cocaine Metab Screen Negative (NEGATIVE) U Marijuana (THC) Screen Negative (NEGATIVE) Ethyl Alcohol mg/dL Blood Type Gel Antibody Screen 05/09/20 05/09/20 05/09/20 Range/Units 18:00 18:08 23:00 WBC (4.5-11.0) K/uL RBC (4.30-5.90) M/uL Hgb 15.3 H (12.0-15.0) g/dL Hct (40.0-54.0) % MCV (80-98) fL MCH (27-31) pg MCHC (32-36) % Plt Count (150-400) K/uL Neut % (Auto) (36-66) % Lymph % (Auto) (24-44) % [place] % (Auto) (2-6) % Eos % (Auto) (2-4) % Baso % (Auto) (0-1) % Sodium (140-148) mmol/L Potassium (3.6-5.2) mmol/L Chloride (100-108) mmol/L Carbon Dioxide (21-32) mmol/L Anion Gap (5.0-14.0) mmol/L BUN (7-18) mg/dL Creatinine (0.8-1.3) mg/dL Est Cr Clr Drug Dosing mL/min Estimated GFR (MDRD) (>60) Glucose (74-106) mg/dL Calcium (8.5-10.1) mg/dL Magnesium (1.8-2.4) mg/dL Troponin I (0.000-0.056) ng/mL Urine Opiates Screen (NEGATIVE) Ur Oxycodone Screen (NEGATIVE) Urine Methadone Screen (NEGATIVE) Ur Propoxyphene Screen (NEGATIVE) Ur Barbiturates Screen (NEGATIVE) Ur Tricyclics Screen (NEGATIVE) Ur Phencyclidine Scrn (NEGATIVE) Ur Amphetamine Screen (NEGATIVE) U Methamphetamines Scrn (NEGATIVE) Urine MDMA Screen (NEGATIVE) U Benzodiazepines Scrn (NEGATIVE) U Cocaine Metab Screen (NEGATIVE) U Marijuana (THC) Screen (NEGATIVE) Ethyl Alcohol 82 mg/dL Blood Type A NEGATIVE Gel Antibody Screen Negative 05/10/20 05/10/20 Range/Units 04:15 04:15 WBC 4.8 (4.5-11.0) K/uL RBC 4.59 (4.30-5.90) M/uL Hgb 15.6 H (12.0-15.0) g/dL Hct 43.9 (40.0-54.0) % MCV 96 (80-98) fL MCH 34 H (27-31) pg MCHC 36 (32-36) % Plt Count 132 L (150-400) K/uL Neut % (Auto) 85 H (36-66) % Lymph % (Auto) 13 L (24-44) % [place] % (Auto) 2 (2-6) % Eos % (Auto) 0 L (2-4) % Baso % (Auto) 0 (0-1) % Sodium 138 L (140-148) mmol/L Potassium 3.5 L (3.6-5.2) mmol/L Chloride 100 (100-108) mmol/L Carbon Dioxide 26 (21-32) mmol/L Anion Gap 15.5 H (5.0-14.0) mmol/L BUN 10 (7-18) mg/dL Creatinine 0.7 L (0.8-1.3) mg/dL Est Cr Clr Drug Dosing 141.68 mL/min Estimated GFR (MDRD) > 60 (>60) Glucose 164 H (74-106) mg/dL Calcium 8.1 L (8.5-10.1) mg/dL Magnesium 1.3 L (1.8-2.4) mg/dL Troponin I (0.000-0.056) ng/mL Urine Opiates Screen (NEGATIVE) Ur Oxycodone Screen (NEGATIVE) Urine Methadone Screen (NEGATIVE) Ur Propoxyphene Screen (NEGATIVE) Ur Barbiturates Screen (NEGATIVE) Ur Tricyclics Screen (NEGATIVE) Ur Phencyclidine Scrn (NEGATIVE) Ur Amphetamine Screen (NEGATIVE) U Methamphetamines Scrn (NEGATIVE) Urine MDMA Screen (NEGATIVE) U Benzodiazepines Scrn (NEGATIVE) U Cocaine Metab Screen (NEGATIVE) U Marijuana (THC) Screen (NEGATIVE) Ethyl Alcohol mg/dL Blood Type Gel Antibody Screen Med Orders - Current: Current Medications Acetaminophen (Tylenol) 650 mg PO Q4H PRN PRN Reason: Pain (Mild 1-3)/fever Last Admin: 05/10/20 09:40 Dose: 650 mg Documented by: Albuterol (Proventil Neb Soln) 2.5 mg NEB Q4H PRN PRN Reason: Shortness Of Breath/wheezing Last Admin: 05/10/20 07:56 Dose: 2.5 mg Documented by: Sodium Chloride (Normal Saline) 1,000 mls @ 125 mls/hr IV ASDIRECTED [facility] Last Admin: 05/10/20 12:34 Dose: 125 mls/hr Documented by: Magnesium Sulfate 2 gm/ Premix 50 mls @ 25 mls/hr IV Q6H [facility] Stop: 05/10/20 22:59 Last Admin: 05/10/20 14:35 Dose: 25 mls/hr Documented by: Octreotide Acetate 500 mcg/ (Sodium Chloride) 500 mls @ 50 mls/hr IV Q10H [facility] Last Admin: 05/10/20 09:13 Dose: 50 mcg/hr, 50 mls/hr Documented by: Magnesium Oxide (Magnesium Oxide) 400 mg PO BID [facility] Last Admin: 05/10/20 09:41 Dose: 400 mg Documented by: Methylprednisolone Sodium Succinate (Solu-Medrol) 40 mg IVPUSH Q6H [facility] Last Admin: 05/10/20 14:16 Dose: 40 mg Documented by: Mirtazapine (Remeron) 30 mg PO BEDTIME [facility] Nadolol (Naldol) 20 mg PO DAILY [facility] Last Admin: 05/10/20 09:41 Dose: 20 mg Documented by: Ondansetron HCl (Zofran) 4 mg IV Q4H PRN PRN Reason: Nausea/Vomiting Pantoprazole Sodium (Protonix) 40 mg PO ACBREAKFAST [facility] Last Admin: 05/10/20 09:41 Dose: 40 mg Documented by: Polyethylene Glycol (Miralax) 17 gm PO DAILY PRN PRN Reason: Constipation Sodium Chloride (Saline Flush) 10 ml FLUSH ASDIRECTED PRN PRN Reason: Keep Vein Open Trazodone HCl (Trazodone) 100 mg PO BEDTIME [facility] Last Admin: 05/09/20 20:28 Dose: 100 mg Documented by: Discontinued Medications Albuterol/Ipratropium (Combivent Respimat) 1 gm INH NOW STA Stop: 05/09/20 11:27 Last Admin: 05/09/20 11:40 Dose: 2 puff Documented by: Diphenhydramine HCl (Benadryl) 25 mg PO ONETIME ONE Stop: 05/09/20 13:25 Last Admin: 05/09/20 13:35 Dose: 25 mg Documented by: Fentanyl (Sublimaze) Confirm Administered Dose 100 [facility] Stop: 05/10/20 07:28 Sodium Chloride (Normal Saline) 1,000 mls @ 500 mls/hr IV ASDIRECTED [facility] Last Admin: 05/09/20 15:12 Dose: 500 mls/hr Documented by: Sodium Chloride (Normal Saline) 100 mls @ 4 mls/sec IV ASDIRECTED [facility] Last Admin: 05/09/20 15:23 Dose: 4 mls/sec Documented by: Pantoprazole Sodium 80 mg/ (Sodium Chloride) 100 mls @ 10 mls/hr IV Q10H [facility] Stop: 05/10/20 13:55 Last Admin: 05/10/20 06:41 Dose: 10 mls/hr Documented by: Pantoprazole Sodium 80 mg/ (Sodium Chloride) 100 mls @ 10 mls/hr IV Q10H [facility] Potassium Chloride 20 meq/Lidocaine HCl 2 ml/ Sodium Chloride 112 mls @ 56 mls/hr IV Q2H [facility] Stop: 05/10/20 13:59 Last Admin: 05/10/20 12:15 Dose: 56 mls/hr Documented by: Lactated Ringer's (Ringers, Lactated) Confirm Administered Dose 1,000 mls @ as directed .[facility]TE [facility] [facility] Stop: 05/10/20 08:28 Influenza Virus Vaccine (Pharmacy To Dose - Influenza Vaccine) 1 each IM ONETIME ONE Stop: 05/10/20 10:01 Influenza Virus Vaccine (Fluzone Quad 5741-1900 Syringe) 60 mcg IM .ONCE ONE Stop: 05/09/20 20:01 Last Admin: 05/09/20 20:56 Dose: 60 mcg Documented by: Iopamidol (Isovue-370 (76%)) 100 ml IV . DIRECTED [facility] Last Admin: 05/09/20 15:23 Dose: 100 ml Documented by: Lorazepam (Ativan) 1 mg PO ONETIME ONE Stop: 05/09/20 11:27 Last Admin: 05/09/20 11:39 Dose: 1 mg Documented by: Lorazepam (Ativan) 1 mg PO ONETIME ONE Stop: 05/09/20 13:25 Last Admin: 05/09/20 13:35 Dose: 1 mg Documented by: Methylprednisolone Sodium Succinate (Solu-Medrol) 40 mg IVPUSH ONETIME ONE Stop: 05/09/20 17:18 Last Admin: 05/09/20 17:33 Dose: 40 mg Documented by: Midazolam HCl (Versed 1 Mg/Ml) Confirm Administered Dose 2 mg .ROUTE .STK-MED ONE Stop: 05/10/20 07:28 Octreotide Acetate (Sandostatin) 50 mcg IVPUSH ONETIME ONE Stop: 05/10/20 09:01 Last Admin: 05/10/20 09:41 Dose: 50 mcg Documented by: Pantoprazole Sodium (Protonix Iv) 80 mg IVPUSH .BOLUS [facility] Last Admin: 05/09/20 19:38 Dose: 80 mg Documented by: Propofol (Diprivan 20 Ml) Confirm Administered Dose 200 mg .ROUTE .STK-MED ONE Stop: 05/10/20 08:25 Propofol (Diprivan 20 Ml) Confirm Administered Dose 200 mg .ROUTE .STK-MED ONE Stop: 05/10/20 08:28 Propofol (Diprivan 20 Ml) Confirm Administered Dose 200 mg .ROUTE .STK-MED ONE Stop: 05/10/20 08:28 Sodium Chloride (Saline Flush) 10 ml FLUSH ASDIRECTED PRN PRN Reason: Keep Vein Open Last Admin: 05/09/20 15:23 Dose: 10 ml Documented by: - Exam Quality Assessment: DVT Prophylaxis General: Alert, Oriented, Cooperative, No Acute Distress Lungs: Clear to Auscultation, Normal Respiratory Effort Cardiovascular: Regular Rate, Regular Rhythm, No Murmurs GI/Abdominal Exam: Soft, Non-Tender, No Organomegaly, No Distention Extremities: Non-Tender, No Pedal Edema Sepsis Event Note - Evaluation Sepsis Screening Result: No Definite Risk - Focused Exam Vital Signs: Vital Signs Temp Pulse Pulse Resp BP BP Pulse Ox 05/10/20 14:00 73 16 167/97 H 92 L 05/10/20 13:52 91 L 05/10/20 12:00 98.6 F 63 16 159/92 H 95 05/10/20 10:00 65 20 160/91 H 90 L 05/10/20 09:41 75 160/81 H 05/10/20 08:55 97.2 F 95 16 164/84 H 96 05/10/20 08:50 96 16 141/81 H 95 05/10/20 08:46 94 16 139/85 94 L 05/10/20 08:40 94 16 123/76 94 L 05/10/20 08:35 97.0 F 93 16 115/68 94 L 05/10/20 08:00 97.8 F 66 20 158/88 H 95 05/10/20 05:00 20 160/97 H 96 - Problem List Review Problem List Initiated/Reviewed/Updated: Yes - My Orders Last 24 Hours: My Active Orders 05/09/20 18:02 Resuscitation Status Routine 05/09/20 19:28 Acetaminophen [TylenoL] 650 mg PO Q4H PRN Albuterol [Proventil Neb Soln] 2.5 mg NEB Q4H PRN Ondansetron [Zofran] 4 mg IV Q4H PRN Sodium Chloride 0.9% [Normal Saline] 1,000 ml IV ASDIRECTED Sodium Chloride 0.9% [Saline Flush] 10 ml FLUSH ASDIRECTED PRN polyethylene glycoL 3350 [MiraLAX] 17 gm PO DAILY PRN 05/09/20 19:28 Patient Status [ADT] Routine Ambulate [RC] QID Cardiac Monitoring [RC] .As Directed Height and Weight [RC] DAILY Intake and Output [RC] QSHIFT Notify Provider Consults [RC] ASDIRECTED Notify Provider Vital Signs [RC] ASDIRECTED Oxygen Therapy [RC] PRN Peripheral IV Care [RC] . DIRECTED Pulse Oximetry [RC] CONTINUOUS RT Aerosol Therapy [RC] ASDIRECTED Up to Chair [RC] QID VTE/DVT Education [RC] Per Unit Routine Vital Signs [RC] Q2H Consult to Physician [CONS] Routine Peripheral IV Insertion Adult [OM.PC] Routine Sequential Compression Device [OM.PC] Per Unit Routine VTE Pharmacological Contraindications [AST] Per Unit Routine 05/09/20 21:00 traZODone 100 mg PO BEDTIME 05/10/20 00:00 methylPREDNISolone Sod Succ [Solu-MEDROL] 40 mg IVPUSH Q6H 05/10/20 Breakfast Clear Liquid Diet [DIET] 05/10/20 09:00 Magnesium Oxide 400 mg PO BID Magnesium Sulfate/Water [Magnesium Sulfate in Water Premix] 2 gm Premix Bag 1 bag IV Q6H Octreotide [SandoSTATIN] 500 mcg Sodium Chloride 0.9% [Normal Saline] 497.5 ml IV Q10H Pantoprazole [ProTONIX] 40 mg PO ACBREAKFAST nadoloL [Naldol] 20 mg PO DAILY 05/10/20 17:00 HGB [HEMOGLOBIN] [HEME] Stat 05/10/20 21:00 Mirtazapine [Remeron] 30 mg PO BEDTIME 05/11/20 05:00 CBC WITH AUTO DIFF [HEME] Timed COMPREHENSIVE METABOLIC PN,CMP [CHEM] Timed INR,PT,PROTHROMBIN TIME [COAG] Timed MAGNESIUM [CHEM] Timed - Plan Plan:: ASSESSMENT AND PLAN ASTHMA EXACERBATION-fairly abrupt onset of shortness of breath, no prior history of asthma. Peak flows in the emergency department decreased and did improve with bronchodilator therapy. Subjectively he reports less shortness of breath compared to admission. -Nebulized albuterol as needed -Continuous pulse oximetry -Solu-Medrol 40 mg IV every 6 hours -Consider further cardiac work-up including stress test and echocardiogram. UPPER GI BLEED SECONDARY TO ESOPHAGEAL VARICES-hemodynamically stable since admission with only mild drop in hemoglobin. Bleeding varices noted at the time of EGD performed this morning by Dr. Mcmillan. Varice was clipped and banded -Serial hemoglobin levels -Protonix 40 mg p.o. daily -Octreotide bolus and infusion -Nadolol 20 mg p.o. daily -Type and screen -Surgical follow-up per Dr. Mcmillan PROBABLE HEPATIC CIRRHOSIS-he does have a history of alcohol use and previous history of alcohol abuse -We will require further imaging and laboratory studies MAINTENANCE ISSUES -DVT prophylaxis; SCUDs -GI prophylaxis; Protonix as above -Louis catheter; not indicated -Nutrition; clear liquid diet -Nicotine dependence; not required CODE STATUS-FULL CODE ADMISSION STATUS-patient will be admitted to inpatient status, expect at least a 2 night hospital stay for evaluation and management of problems as outlined above. At the time of this admission I do not reasonably expected evaluation and management of this problem will require more than a 96 hour hospital stay. DISPOSITION-anticipate discharge to home after the hospital stay. PRIMARY CARE PROVIDER-patient is from [place] and receives his primary care at the [facility]
[2020-05-10] MEDS ORDERED: Pantoprazole 80 MG in Sodium Chloride 0.9% 100 ML IV SCH (16:45)
[2020-05-10] MEDS: Mirtazapine 15 MG Tab PO SCH (20:21)
[2020-05-10] MEDS: traZODone 50 MG Tab PO SCH (20:21)
[2020-05-11] MEDS: Octreotide 500 MCG in Sodium Chloride 0.9% 497.5 ML IV SCH ×2 (05:20→15:34)
[2020-05-11] MEDS: methylPREDNISolone Sodium Succinate 40 MG/1 ML SDV IVPUSH SCH (05:22)
[2020-05-11] MEDS: Pantoprazole 40 MG Tab.CR PO SCH (08:55)
[2020-05-11] MEDS: Magnesium Oxide 400 MG Tab PO SCH ×2 (08:55→20:56)
--- NOTE | 2020-05-11 09:26 | PCM.PN ---
- General Info Date of Service: 05/11/20 Subjective Update: Mr. Hays has remained stable over the last 24 hours. He feels that his breathing is significantly improved and almost back to baseline. There has been no further evidence of active bleeding. Functional Status: Reports: Tolerating Diet, Ambulating, Urinating - Review of Systems General: Reports: No Symptoms Pulmonary: Reports: Shortness of Breath, Cough. Denies: Pleuritic Chest Pain, Sputum, Hemoptysis, Wheezing Cardiovascular: Reports: Dyspnea on Exertion. Denies: Chest Pain, Palpitations, Orthopnea, PND, Edema, Lightheadedness Gastrointestinal: Reports: No Symptoms - Patient Data Vitals - Most Recent: Last Vital Signs Temp 95.5 F L 05/11/20 04:00 Pulse 57 L 05/11/20 08:55 Resp 18 05/11/20 08:00 BP 165/87 H 05/11/20 08:55 Pulse Ox 91 L 05/11/20 08:00 Weight - Most Recent: 274 lb 6.409 oz I&O - Last 24 Hours: Intake & Output 05/10/20 05/11/20 05/11/20 22:59 06:59 14:59 Intake Total 2250 3117 Output Total 650 2100 Balance 1600 1017 Lab Results Last 24 Hours: Laboratory Results - last 24 hr 05/10/20 05/11/20 05/11/20 Range/Units 16:55 05:30 05:30 WBC 12.8 H (4.5-11.0) K/uL RBC 4.44 (4.30-5.90) M/uL Hgb 15.7 H 15.1 H (12.0-15.0) g/dL Hct 43.6 (40.0-54.0) % MCV 98 (80-98) fL MCH 34 H (27-31) pg MCHC 35 (32-36) % Plt Count 150 (150-400) K/uL Neut % (Auto) 90 H (36-66) % Lymph % (Auto) 7 L (24-44) % [place] % (Auto) 2 (2-6) % Eos % (Auto) 0 L (2-4) % Baso % (Auto) 0 (0-1) % PT 12.1 H (9.5-12.0) sec INR 1.11 (0.80-1.20) Sodium (140-148) mmol/L Potassium (3.6-5.2) mmol/L Chloride (100-108) mmol/L Carbon Dioxide (21-32) mmol/L Anion Gap (5.0-14.0) mmol/L BUN (7-18) mg/dL Creatinine (0.8-1.3) mg/dL Est Cr Clr Drug Dosing mL/min Estimated GFR (MDRD) (>60) Glucose (74-106) mg/dL Calcium (8.5-10.1) mg/dL Magnesium (1.8-2.4) mg/dL Total Bilirubin (0.2-1.0) mg/dL AST (15-37) U/L ALT (12-78) U/L Alkaline Phosphatase (46-116) U/L Total Protein (6.4-8.2) g/dL Albumin (3.4-5.0) g/dL Globulin (2.3-3.5) g/dL Albumin/Globulin Ratio (1.2-2.2) 05/11/20 Range/Units 05:30 WBC (4.5-11.0) K/uL RBC (4.30-5.90) M/uL Hgb (12.0-15.0) g/dL Hct (40.0-54.0) % MCV (80-98) fL MCH (27-31) pg MCHC (32-36) % Plt Count (150-400) K/uL Neut % (Auto) (36-66) % Lymph % (Auto) (24-44) % [place] % (Auto) (2-6) % Eos % (Auto) (2-4) % Baso % (Auto) (0-1) % PT (9.5-12.0) sec INR (0.80-1.20) Sodium 135 L (140-148) mmol/L Potassium 4.3 (3.6-5.2) mmol/L Chloride 104 (100-108) mmol/L Carbon Dioxide 22 (21-32) mmol/L Anion Gap 13.3 (5.0-14.0) mmol/L BUN 12 (7-18) mg/dL Creatinine 0.7 L (0.8-1.3) mg/dL Est Cr Clr Drug Dosing 141.21 mL/min Estimated GFR (MDRD) > 60 (>60) Glucose 149 H (74-106) mg/dL Calcium 7.7 L (8.5-10.1) mg/dL Magnesium 2.8 H (1.8-2.4) mg/dL Total Bilirubin 0.9 (0.2-1.0) mg/dL AST 63 H (15-37) U/L ALT 63 (12-78) U/L Alkaline Phosphatase 54 (46-116) U/L Total Protein 6.9 (6.4-8.2) g/dL Albumin 3.1 L (3.4-5.0) g/dL Globulin 3.8 H (2.3-3.5) g/dL Albumin/Globulin Ratio 0.8 L (1.2-2.2) Med Orders - Current: Current Medications Acetaminophen (Tylenol) 650 mg PO Q4H PRN PRN Reason: Pain (Mild 1-3)/fever Last Admin: 05/10/20 16:51 Dose: 650 mg Documented by: Albuterol (Proventil Neb Soln) 2.5 mg NEB Q4H PRN PRN Reason: Shortness Of Breath/wheezing Last Admin: 05/10/20 07:56 Dose: 2.5 mg Documented by: Octreotide Acetate 500 mcg/ (Sodium Chloride) 500 mls @ 50 mls/hr IV Q10H [facility] Last Admin: 05/11/20 05:20 Dose: 50 mcg/hr, 50 mls/hr Documented by: Magnesium Oxide (Magnesium Oxide) 400 mg PO BID [facility] Last Admin: 05/11/20 08:55 Dose: 400 mg Documented by: Mirtazapine (Remeron) 30 mg PO BEDTIME [facility] Last Admin: 05/10/20 20:21 Dose: 30 mg Documented by: Nadolol (Naldol) 20 mg PO DAILY [facility] Last Admin: 05/11/20 08:55 Dose: 20 mg Documented by: Ondansetron HCl (Zofran) 4 mg IV Q4H PRN PRN Reason: Nausea/Vomiting Pantoprazole Sodium (Protonix) 40 mg PO ACBREAKFAST [facility] Last Admin: 05/11/20 08:55 Dose: 40 mg Documented by: Polyethylene Glycol (Miralax) 17 gm PO DAILY PRN PRN Reason: Constipation Prednisone (Prednisone) 40 mg PO DAILY [facility] Sodium Chloride (Saline Flush) 10 ml FLUSH ASDIRECTED PRN PRN Reason: Keep Vein Open Trazodone HCl (Trazodone) 100 mg PO BEDTIME [facility] Last Admin: 05/10/20 20:21 Dose: 100 mg Documented by: Discontinued Medications Albuterol/Ipratropium (Combivent Respimat) 1 gm INH NOW STA Stop: 05/09/20 11:27 Last Admin: 05/09/20 11:40 Dose: 2 puff Documented by: Diphenhydramine HCl (Benadryl) 25 mg PO ONETIME ONE Stop: 05/09/20 13:25 Last Admin: 05/09/20 13:35 Dose: 25 mg Documented by: Fentanyl (Sublimaze) Confirm Administered Dose 100 mcg .ROUTE .STK-MED ONE Stop: 05/10/20 07:28 Sodium Chloride (Normal Saline) 1,000 mls @ 500 mls/hr IV ASDIRECTED [facility] Last Admin: 05/09/20 15:12 Dose: 500 mls/hr Documented by: Sodium Chloride (Normal Saline) 100 mls @ 4 mls/sec IV ASDIRECTED [facility] Last Admin: 05/09/20 15:23 Dose: 4 mls/sec Documented by: Pantoprazole Sodium 80 mg/ (Sodium Chloride) 100 mls @ 10 mls/hr IV Q10H [facility] Stop: 05/10/20 13:55 Last Admin: 05/10/20 06:41 Dose: 10 mls/hr Documented by: Sodium Chloride (Normal Saline) 1,000 mls @ 125 mls/hr IV ASDIRECTED [facility] Last Admin: 05/10/20 12:34 Dose: 125 mls/hr Documented by: Pantoprazole Sodium 80 mg/ (Sodium Chloride) 100 mls @ 10 mls/hr IV Q10H [facility] Potassium Chloride 20 meq/Lidocaine HCl 2 ml/ Sodium Chloride 112 mls @ 56 mls/hr IV Q2H [facility] Stop: 05/10/20 13:59 Last Admin: 05/10/20 12:15 Dose: 56 mls/hr Documented by: Magnesium Sulfate 2 gm/ Premix 50 mls @ 25 mls/hr IV Q6H [facility] Stop: 05/10/20 22:59 Last Admin: 05/10/20 20:21 Dose: 25 mls/hr Documented by: Lactated Ringer's (Ringers, Lactated) Confirm Administered Dose 1,000 mls @ as directed .ROUTE .[facility]-MED ONE Stop: 05/10/20 08:28 Influenza Virus Vaccine (Pharmacy To Dose - Influenza Vaccine) 1 each IM ONETIME ONE Stop: 05/10/20 10:01 Influenza Virus Vaccine (Fluzone Quad [id number] Syringe) 60 mcg IM .ONCE ONE Stop: 05/09/20 20:01 Last Admin: 05/09/20 20:56 Dose: 60 mcg Documented by: Iopamidol (Isovue-370 (76%)) 100 ml IV . DIRECTED [facility] Last Admin: 05/09/20 15:23 Dose: 100 ml Documented by: Lorazepam (Ativan) 1 mg PO ONETIME ONE Stop: 05/09/20 11:27 Last Admin: 05/09/20 11:39 Dose: 1 mg Documented by: Lorazepam (Ativan) 1 mg PO ONETIME ONE Stop: 05/09/20 13:25 Last Admin: 05/09/20 13:35 Dose: 1 mg Documented by: Methylprednisolone Sodium Succinate (Solu-Medrol) 40 mg IVPUSH ONETIME ONE Stop: 05/09/20 17:18 Last Admin: 05/09/20 17:33 Dose: 40 mg Documented by: Methylprednisolone Sodium Succinate (Solu-Medrol) 40 mg IVPUSH Q6H [facility] Last Admin: 05/11/20 05:22 Dose: 40 mg Documented by: Midazolam HCl (Versed 1 Mg/Ml) Confirm Administered Dose 2 mg .ROUTE .STK-MED ONE Stop: 05/10/20 07:28 Octreotide Acetate (Sandostatin) 50 mcg IVPUSH ONETIME ONE Stop: 05/10/20 09:01 Last Admin: 05/10/20 09:41 Dose: 50 mcg Documented by: Pantoprazole Sodium (Protonix Iv) 80 mg IVPUSH .BOLUS [facility] Last Admin: 05/09/20 19:38 Dose: 80 mg Documented by: Propofol (Diprivan 20 Ml) Confirm Administered Dose 200 mg .ROUTE .STK-MED ONE Stop: 05/10/20 08:25 Propofol (Diprivan 20 Ml) Confirm Administered Dose 200 mg .ROUTE .STK-MED ONE Stop: 05/10/20 08:28 Propofol (Diprivan 20 Ml) Confirm Administered Dose 200 mg .ROUTE .STK-MED ONE Stop: 05/10/20 08:28 Sodium Chloride (Saline Flush) 10 ml FLUSH ASDIRECTED PRN PRN Reason: Keep Vein Open Last Admin: 05/09/20 15:23 Dose: 10 ml Documented by: - Exam Quality Assessment: DVT Prophylaxis General: Alert, Oriented, Cooperative, Mild Distress Lungs: Clear to Auscultation, Normal Respiratory Effort Cardiovascular: Regular Rate, Regular Rhythm, No Murmurs GI/Abdominal Exam: Soft, Non-Tender, No Organomegaly, No Distention Extremities: Non-Tender, No Pedal Edema Sepsis Event Note - Evaluation Sepsis Screening Result: No Definite Risk - Focused Exam Vital Signs: Vital Signs Temp Pulse Pulse Resp BP BP Pulse Ox 05/11/20 08:55 57 L 165/87 H 05/11/20 08:00 56 L 18 165/96 H 91 L 05/11/20 06:00 15 163/95 H 91 L 05/11/20 04:00 95.5 F L 13 142/86 H 92 L 05/11/20 02:00 12 146/86 H 92 L 05/11/20 00:00 95.9 F L 13 138/78 95 05/10/20 22:00 15 134/80 95 - Problem List Review Problem List Initiated/Reviewed/Updated: Yes - My Orders Last 24 Hours: My Active Orders 05/10/20 09:00 Magnesium Oxide 400 mg PO BID Octreotide [SandoSTATIN] 500 mcg Sodium Chloride 0.9% [Normal Saline] 497.5 ml IV Q10H Pantoprazole [ProTONIX] 40 mg PO ACBREAKFAST nadoloL [Naldol] 20 mg PO DAILY 05/10/20 16:27 Convert IV to Saline Lock [OM.PC] Routine 05/10/20 21:00 Mirtazapine [Remeron] 30 mg PO BEDTIME 05/11/20 Breakfast Full Liquid Diet [DIET] 05/11/20 17:00 HGB [HEMOGLOBIN] [HEME] Stat 05/12/20 05:00 BASIC METABOLIC PANEL,BMP [CHEM] Timed 05/12/20 05:11 HGB [HEMOGLOBIN] [HEME] AM 05/12/20 09:00 predniSONE 40 mg PO DAILY - Plan Plan:: ASSESSMENT AND PLAN ASTHMA EXACERBATION-improved shortness of breath, he feels that he is becoming close to baseline -Nebulized albuterol as needed -Continuous pulse oximetry -Discontinue Solu-Medrol -Prednisone 40 mg p.o. with daily -Consider further cardiac work-up including stress test and echocardiogram. UPPER GI BLEED SECONDARY TO ESOPHAGEAL VARICES-hemodynamically stable since admission with only mild drop in hemoglobin. Bleeding varices noted at the time of EGD performed this morning by Dr. Mcmillan. Varice was clipped and banded. Further evidence of active bleeding over the last 24 hours -Serial hemoglobin levels -Protonix 40 mg p.o. daily -Octreotide bolus and infusion -Nadolol 20 mg p.o. daily -Type and screen -Surgical follow-up per Dr. Mcmillan PROBABLE HEPATIC CIRRHOSIS-he does have a history of alcohol use and previous history of alcohol abuse -We will require further imaging and laboratory studies, he prefers to defer further evaluation until he is able to get back into the [facility] system MAINTENANCE ISSUES -DVT prophylaxis; SCUDs -GI prophylaxis; Protonix as above -Louis catheter; not indicated -Nutrition; clear liquid diet -Nicotine dependence; not required CODE STATUS-FULL CODE ADMISSION STATUS-patient will be admitted to inpatient status, expect at least a 2 night hospital stay for evaluation and management of problems as outlined above. At the time of this admission I do not reasonably expected evaluation and management of this problem will require more than a 96 hour hospital stay. DISPOSITION-anticipate discharge to home after the hospital stay. PRIMARY CARE PROVIDER-patient is from [place] and receives his primary care at the [facility]
[2020-05-11] MEDS ORDERED: Lisinopril 10 MG Tab PO ONE (17:14)
[2020-05-11] MEDS: Mirtazapine 15 MG Tab PO SCH (20:56)
[2020-05-11] MEDS: traZODone 50 MG Tab PO SCH (20:56)
[2020-05-12] MEDS: Octreotide 500 MCG in Sodium Chloride 0.9% 497.5 ML IV SCH (00:56)
[2020-05-12] MEDS: Pantoprazole 40 MG Tab.CR PO SCH (07:30)
[2020-05-12] MEDS ORDERED: predniSONE 20 MG Tab PO SCH (08:00)
[2020-05-12] MEDS: Magnesium Oxide 400 MG Tab PO SCH (08:47)
--- NOTE | 2020-05-12 09:45 | PCM.DCSUM1 ---
Discharge Summary - Hospital Course Brief History: Mr. Hays is a 40-year-old gentleman who was admitted through the emergency department with shortness of breath secondary to asthma and hematemesis secondary to bleeding esophageal varice. - Discharge Data Discharge Date: 05/12/20 Discharge Disposition: Home, Self-Care 01 Condition: Fair - Referral to Home Health Primary Care Physician: PCP None - Discharge Diagnosis/Problem(s) (1) UGIB (upper gastrointestinal bleed) SNOMED Code(s): 43652796 ICD Code: K92.2 - GASTROINTESTINAL HEMORRHAGE, UNSPECIFIED Status: Acute Current Visit: Yes (2) Esophageal varices with hemorrhage SNOMED Code(s): 65666340, 52281879 ICD Code: I85.01 - ESOPHAGEAL VARICES WITH BLEEDING Status: Acute Current Visit: Yes (3) Asthma SNOMED Code(s): 500688703 ICD Code: J45.909 - UNSPECIFIED ASTHMA, UNCOMPLICATED Status: Acute Current Visit: Yes - Patient Summary/Data Consults: Consultations 05/09/20 19:28 Consult to Physician [CONS] Routine Consulting Provider: Michele Mcmillan Call Completed to Consulting Physician: Yes Reason for Consult: Upper GI bleed, please see for EGD in a.m. Hospital Course: Mr. Hays is a 40-year-old gentleman who was admitted through the emergency department with shortness of breath secondary to asthma exacerbation as well as hematemesis secondary to an upper GI bleed. He was feeling well until the day prior to admission when he noted onset of shortness of breath with exertion. Symptoms progressed through the night and he was unable to sleep very well. He presented to the emergency department in the morning for further evaluation. Chest x-ray as well as CT scan of the chest with PE protocol are all negative. White blood cell count is within normal range. Arterial blood gases show evidence of hyperventilation and respiratory alkalosis. He has had some associated cough that has been nonproductive. Peak flow was obtained and was found to be low and improved with inhaler therapy. While in the emergency department he has had 2 separate episodes of hematemesis. Follow-up hemoglobin level was obtained and had not changed substantially. He has 1 previous episode of upper GI bleed related to nonsteroidal use. 2 troponin levels have been obtained and were found to be normal. While in the emergency department he was given a bolus dose of Protonix of 80 mg and started on a continuous infusion of Protonix. He was kept n.p.o. and given IV fluids for hydration. Nebulizer therapy was ordered and he was started on Solu-Medrol 40 mg every 6 hours. The morning after admission he was seen and evaluated by Dr. Mcmillan for surgical consult and EGD was performed. EGD showed evidence of a bleeding esophageal varices. The varices was clipped and banded. He had no further evidence of active bleeding through his hospital stay. Protonix was discontinued and he received a 48-hour infusion of octreotide. He denied any previous history of hepatic cirrhosis and requested that we defer further liver evaluation to outpatient follow-up at the [facility]. During the course of his hospital stay respiratory status improved and was almost back to baseline by the time of discharge. He will be discharged with an additional 3 days of oral prednisone 40 mg daily as well as albuterol inhaler and Advair Diskus 2 inhalations twice daily. He was started on nadolol 20 mg daily and will be discharged home on 40 mg daily. Activity will be as tolerated and he is encouraged to follow a soft diet. He was instructed to avoid all further alcohol use as well as to discontinue smoking. He will follow-up with his primary physician at the [facility] and will require further evaluation for underlying liver disease including testing for other potential causes of cirrhosis as well as imaging studies. Activity will be as tolerated and he will be on a soft diet. He should return immediately to the emergency department if he notes any evidence of further bleeding including hematemesis or melena. - Patient Instructions Diet: Low Sodium, No Alcoholic Beverages Activity: As Tolerated Other/Special Instructions: Please schedule follow-up appointment with primary care provider within 1 week. - Discharge Plan *PRESCRIPTION DRUG MONITORING PROGRAM REVIEWED*: Not Applicable *COPY OF PRESCRIPTION DRUG MONITORING REPORT IN PATIENT ERIKA: Not Applicable Prescriptions/Med Rec: Fluticasone/Salmeterol [Advair 250-50] 2 puff INH BID #1 diskus nadoloL [Corgard] 40 mg PO DAILY #30 tablet predniSONE 40 mg PO DAILY@0800 #6 tablet Albuterol [Proventil HFA] 2 puff INH Q2H PRN #1 inhaler PRN Reason: Shortness Of Breath Home Medications: Home Meds Mirtazapine 30 mg PO BEDTIME 05/09/20 [History] lisinopriL [Lisinopril] 10 mg PO DAILY 05/09/20 [History] traZODone 100 mg PO BEDTIME 05/09/20 [History] Albuterol [Proventil HFA] 2 puff INH Q2H PRN #1 inhaler 05/12/20 [Rx] Fluticasone/Salmeterol [Advair 250-50] 2 puff INH BID #1 diskus 05/12/20 [Rx] nadoloL [Corgard] 40 mg PO DAILY #30 tablet 05/12/20 [Rx] predniSONE 40 mg PO DAILY@0800 #6 tablet 05/12/20 [Rx] - Discharge Summary/Plan Comment DC Time >30 min.: No - Patient Data Vitals - Most Recent: Last Vital Signs Temp 96.7 F L 05/12/20 08:15 Pulse 65 05/12/20 08:47 Resp 17 05/12/20 08:15 BP 159/104 H 05/12/20 08:47 Pulse Ox 95 05/12/20 08:15 Weight - Most Recent: 289 lb 9.6 oz I&O - Last 24 hours: Intake & Output 05/11/20 05/12/20 05/12/20 22:59 06:59 14:59 Intake Total 2025 644 Output Total 500 2100 Balance 1525 -1456 Lab Results - Last 24 hrs: Laboratory Results - last 24 hr 05/11/20 05/12/20 05/12/20 Range/Units 16:58 06:01 06:01 Hgb 16.0 H 14.7 (12.0-15.0) g/dL Sodium 135 L (140-148) mmol/L Potassium 4.2 (3.6-5.2) mmol/L Chloride 104 (100-108) mmol/L Carbon Dioxide 23 (21-32) mmol/L Anion Gap 12.2 (5.0-14.0) mmol/L BUN 17 (7-18) mg/dL Creatinine 0.8 (0.8-1.3) mg/dL Est Cr Clr Drug Dosing 123.56 mL/min Estimated GFR (MDRD) > 60 (>60) Glucose 135 H (74-106) mg/dL Calcium 7.8 L (8.5-10.1) mg/dL Med Orders - Current: Current Medications Acetaminophen (Tylenol) 650 mg PO Q4H PRN PRN Reason: Pain (Mild 1-3)/fever Last Admin: 05/10/20 16:51 Dose: 650 mg Documented by: Albuterol (Proventil Neb Soln) 2.5 mg NEB Q4H PRN PRN Reason: Shortness Of Breath/wheezing Last Admin: 05/10/20 07:56 Dose: 2.5 mg Documented by: Lisinopril (Prinivil) 10 mg PO BEDTIME [facility] Magnesium Oxide (Magnesium Oxide) 400 mg PO BID [facility] Last Admin: 05/12/20 08:47 Dose: 400 mg Documented by: Mirtazapine (Remeron) 30 mg PO BEDTIME [facility] Last Admin: 05/11/20 20:56 Dose: 30 mg Documented by: Nadolol (Naldol) 20 mg PO DAILY [facility] Last Admin: 05/12/20 08:47 Dose: 20 mg Documented by: Ondansetron HCl (Zofran) 4 mg IV Q4H PRN PRN Reason: Nausea/Vomiting Pantoprazole Sodium (Protonix) 40 mg PO ACBREAKFAST [facility] Last Admin: 05/12/20 07:30 Dose: 40 mg Documented by: Polyethylene Glycol (Miralax) 17 gm PO DAILY PRN PRN Reason: Constipation Prednisone (Prednisone) 40 mg PO DAILY@0800 [facility] Last Admin: 05/12/20 08:47 Dose: 40 mg Documented by: Sodium Chloride (Saline Flush) 10 ml FLUSH ASDIRECTED PRN PRN Reason: Keep Vein Open Trazodone HCl (Trazodone) 100 mg PO BEDTIME [facility] Last Admin: 05/11/20 20:56 Dose: 100 mg Documented by: Discontinued Medications Albuterol/Ipratropium (Combivent Respimat) 1 gm INH NOW STA Stop: 05/09/20 11:27 Last Admin: 05/09/20 11:40 Dose: 2 puff Documented by: Diphenhydramine HCl (Benadryl) 25 mg PO ONETIME ONE Stop: 05/09/20 13:25 Last Admin: 05/09/20 13:35 Dose: 25 mg Documented by: Fentanyl (Sublimaze) Confirm Administered Dose 100 mcg .ROUTE .STK-MED ONE Stop: 05/10/20 07:28 Sodium Chloride (Normal Saline) 1,000 mls @ 500 mls/hr IV ASDIRECTED [facility] Last Admin: 05/09/20 15:12 Dose: 500 mls/hr Documented by: Sodium Chloride (Normal Saline) 100 mls @ 4 mls/sec IV ASDIRECTED [facility] Last Admin: 05/09/20 15:23 Dose: 4 mls/sec Documented by: Pantoprazole Sodium 80 mg/ (Sodium Chloride) 100 mls @ 10 mls/hr IV Q10H [facility] Stop: 05/10/20 13:55 Last Admin: 05/10/20 06:41 Dose: 10 mls/hr Documented by: Sodium Chloride (Normal Saline) 1,000 mls @ 125 mls/hr IV ASDIRECTED [facility] Last Admin: 05/10/20 12:34 Dose: 125 mls/hr Documented by: Pantoprazole Sodium 80 mg/ (Sodium Chloride) 100 mls @ 10 mls/hr IV Q10H [facility] Potassium Chloride 20 meq/Lidocaine HCl 2 ml/ Sodium Chloride 112 mls @ 56 mls/hr IV Q2H [facility] Stop: 05/10/20 13:59 Last Admin: 05/10/20 12:15 Dose: 56 mls/hr Documented by: Magnesium Sulfate 2 gm/ Premix 50 mls @ 25 mls/hr IV Q6H [facility] Stop: 05/10/20 22:59 Last Admin: 05/10/20 20:21 Dose: 25 mls/hr Documented by: Lactated Ringer's (Ringers, Lactated) Confirm Administered Dose 1,000 mls @ as directed .ROUTE .[facility]-MED ONE Stop: 05/10/20 08:28 Octreotide Acetate 500 mcg/ (Sodium Chloride) 500 mls @ 50 mls/hr IV Q10H [facility] Last Admin: 05/12/20 00:56 Dose: 50 mcg/hr, 50 mls/hr Documented by: Influenza Virus Vaccine (Pharmacy To Dose - Influenza Vaccine) 1 each IM ONETIME ONE Stop: 05/10/20 10:01 Influenza Virus Vaccine (Fluzone Quad [id number] Syringe) 60 mcg IM .ONCE ONE Stop: 05/09/20 20:01 Last Admin: 05/09/20 20:56 Dose: 60 mcg Documented by: Iopamidol (Isovue-370 (76%)) 100 ml IV . DIRECTED [facility] Last Admin: 05/09/20 15:23 Dose: 100 ml Documented by: Lisinopril (Prinivil) 10 mg PO ONETIME ONE Stop: 05/11/20 17:15 Last Admin: 05/11/20 17:21 Dose: 10 mg Documented by: Lorazepam (Ativan) 1 mg PO ONETIME ONE Stop: 05/09/20 11:27 Last Admin: 05/09/20 11:39 Dose: 1 mg Documented by: Lorazepam (Ativan) 1 mg PO ONETIME ONE Stop: 05/09/20 13:25 Last Admin: 05/09/20 13:35 Dose: 1 mg Documented by: Methylprednisolone Sodium Succinate (Solu-Medrol) 40 mg IVPUSH ONETIME ONE Stop: 05/09/20 17:18 Last Admin: 05/09/20 17:33 Dose: 40 mg Documented by: Methylprednisolone Sodium Succinate (Solu-Medrol) 40 mg IVPUSH Q6H [facility] Last Admin: 05/11/20 05:22 Dose: 40 mg Documented by: Midazolam HCl (Versed 1 Mg/Ml) Confirm Administered Dose 2 mg .ROUTE .STK-MED ONE Stop: 05/10/20 07:28 Octreotide Acetate (Sandostatin) 50 mcg IVPUSH ONETIME ONE Stop: 05/10/20 09:01 Last Admin: 05/10/20 09:41 Dose: 50 mcg Documented by: Pantoprazole Sodium (Protonix Iv) 80 mg IVPUSH .BOLUS [facility] Last Admin: 05/09/20 19:38 Dose: 80 mg Documented by: Propofol (Diprivan 20 Ml) Confirm Administered Dose 200 mg .ROUTE .STK-MED ONE Stop: 05/10/20 08:25 Propofol (Diprivan 20 Ml) Confirm Administered Dose 200 mg .ROUTE .STK-MED ONE Stop: 05/10/20 08:28 Propofol (Diprivan 20 Ml) Confirm Administered Dose 200 mg .ROUTE .STK-MED ONE Stop: 05/10/20 08:28 Sodium Chloride (Saline Flush) 10 ml FLUSH ASDIRECTED PRN PRN Reason: Keep Vein Open Last Admin: 05/09/20 15:23 Dose: 10 ml Documented by: - Exam General: Reports: Alert, Oriented, Cooperative, No Acute Distress Lungs: Reports: Clear to Auscultation, Normal Respiratory Effort Cardiovascular: Reports: Regular Rate, Regular Rhythm, No Murmurs GI/Abdominal Exam: Soft, Non-Tender, No Organomegaly, No Distention Extremities: Non-Tender, No Pedal Edema *Q Meaningful Use (DIS) - VTE *Q VTE Pharmacological Contraindications *Q: Active Hemorrhage
[2020-05-12] MEDS ORDERED: Lisinopril 10 MG Tab PO SCH (21:00)
== END 2020-05-12 10:49 | disposition home or self-care (01) | DRG 369 ==
LOC: JP.ED 11:07 → JP.ICU 18:01
PROVIDERS: ADMIT Hospitalist; ATTEND Hospitalist
PROC: 06L38CZ Occlusion of Esophageal Vein with Extraluminal Device, Via Natural or Artificial Opening Endoscopic (ICD-10-PCS; principal; 2020-05-10)
DX: R06.02 Shortness of breath (principal); R06.00 Dyspnea, unspecified; R06.01 Orthopnea; K92.0 Hematemesis; I85.01 Esophageal varices with bleeding; J45.901 Unspecified asthma with (acute) exacerbation; E78.00 Pure hypercholesterolemia, unspecified; I10 Essential (primary) hypertension; F41.9 Anxiety disorder, unspecified; F32.9 Major depressive disorder, single episode, unspecified; K74.60 Unspecified cirrhosis of liver; Z20.822 Contact with and (suspected) exposure to COVID-19; Z79.899 Other long term (current) drug therapy
CPT/HCPCS: 0241U; 36415; 36600; 71045; 71275; 80048; 80053; 80076; 80305; 80307; 82803; 83605; 83735; 84484; 85018; 85025; 85379; 85610; 86140; 86850; 86900; 86901; 90471; 90686; 93005; 94640; 96374; 99285; 93010; A9270-GY; C9113; G0008; J2001; J2250; J2354; J2704; J2920; J3010; J3475; J3480; J7030; J7040; J7120; J7512; Q9967